=== PATIENT | male | born 1965 | race Caucasian/White ===

== ENCOUNTER → 2017-03-13 | Outpatient (REF) | payer BC | LOC: M SMT 13:44 | PROVIDERS: ATTEND Nurse Practitioner Women's Health | DX: R97.20 Elevated prostate specific antigen [PSA] (principal) ==

== ENCOUNTER → 2021-06-28 | Outpatient (REF) | payer BC ==
[2021-06-28 17:58] LABS: CREATININE, URINE 94.7 MG/DL; MALB URINE SIEMENS 9.1 MG/L; MAU/CREAT RATIO 9.6 MCG/MG (0.0-30.0)
== END ==
LOC: M LAB REF 16:57
PROVIDERS: ATTEND Internal Medicine Endocrinology, Diabetes & Metabolism
DX: E11.65 Type 2 diabetes mellitus with hyperglycemia (principal)

== ENCOUNTER → 2022-05-06 | Outpatient (REF) | payer BC ==
[2022-05-06 20:18] LABS: CREATININE, URINE 81.7 MG/DL; MALB URINE SIEMENS < 5.0 MG/L; MAU/CREAT RATIO 6.1 MCG/MG (0.0-30.0)
== END ==
LOC: M LAB REF 16:58
PROVIDERS: ATTEND Internal Medicine Endocrinology, Diabetes & Metabolism
DX: E11.65 Type 2 diabetes mellitus with hyperglycemia (principal)

== ENCOUNTER → 2023-08-11 | Outpatient (CLI) | payer OTHER | LOC: M RAD 09:49 | PROVIDERS: ATTEND Physician Assistant | DX: I73.9 Peripheral vascular disease, unspecified (principal) ==